=== PATIENT | female | born 2005 | race Caucasian/White ===

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

== ENCOUNTER 2024-01-21 10:49 | Outpatient (CLI) | payer OTHER, SELFPAY ==
--- NOTE | 2024-01-30 12:51 | WPDHOLTEREM ---
Holter/Event Monitor Holter/Event Monitor Date of procedure: 01/21/24 Holter/Event Procedure: 3-7 Day Holter Monitor Indications: Palpitations Conclusion: 1. 3 days event monitor on 01/21/24. 2. Underlying rhythm is sinus rhythm. HR range 35-170 bpm; average HR 68 bpm. HR at 35 bpm was on 01/22/24 at 3:47 am. HR at 170 bpm was on 01/23/24 at 6:08 am. 3. There are rare premature supraventricular complexes. No supraventricular tachycardia. 4. No premature ventricular complexes. No ventricular tachycardia. 5. No significant pauses greater than 3 seconds. 6. No symptoms available for correlation.
== END 2024-01-21 10:50 | disposition home or self-care (01) ==
PROVIDERS: PCP Family Medicine
DX: R00.2 Palpitations (principal)
CPT/HCPCS: 93242

== ENCOUNTER 2024-02-28 10:05 | Outpatient (CLI) | payer OTHER, SELFPAY ==
--- NOTE | ~2024-02-28 | US_ITS ---
EXAM: PELVIC ULTRASOUND HISTORY: Amenorrhea, unspecified COMPARISON: None FINDINGS: UTERUS: 5.3 x 2.1 x 3.1 cm. The endometrial complex measures 5 mm. RIGHT OVARY: The right ovary is unremarkable in echogenicity and size measuring 3.1 x 1.1 x 2.5 cm. Arterial and venous flow are identified. Multiple follicles are noted. LEFT OVARY: The left ovary is unremarkable in echogenicity and size measuring 3.1 x 1.8 x 2.7 cm Both arterial and venous flow are identified. Multiple follicles are noted No free fluid is identified within the pelvis. IMPRESSION: Unremarkable sonographic evaluation of the pelvis, as detailed above. Reviewed, dictated and finalized at location A. [employer]
== END 2024-02-28 10:06 | disposition home or self-care (01) ==
PROVIDERS: PCP Family Medicine; Visit Provider Nurse Practitioner Women's Health
DX: N91.2 Amenorrhea, unspecified (principal)
CPT/HCPCS: 76856

== ENCOUNTER 2024-06-09 14:20 | Outpatient (CLI) | payer OTHER, SELFPAY ==
--- NOTE | ~2024-06-09 | US_ITS ---
EXAMINATION: US thyroid DATE: 06/09/2024 14:40 INDICATION: Thyrotoxicosis TECHNIQUE: Multiple ultrasound images of the thyroid were obtained. COMPARISON: None. FINDINGS: The right thyroid lobe measures 5.2 x 1.3 x 1.4 cm. The left thyroid lobe measures 4.6 x 0.8 x 1.2 cm. The isthmus measures 0.2cm in anterior to posterior dimension. There is normal echotexture and echogenicity throughout the thyroid gland. No discrete nodules identified. Normal vascular flow is present. IMPRESSION: Unremarkable sonographic evaluation of the thyroid gland, as detailed above. Reviewed, dictated and finalized at location A.
== END 2024-06-09 14:21 | disposition home or self-care (01) ==
LOC: MICIMG 14:21
PROVIDERS: PCP Family Medicine; Visit Provider Nurse Practitioner
DX: E05.90 Thyrotoxicosis, unspecified without thyrotoxic crisis or storm (principal)
CPT/HCPCS: 76536